=== PATIENT | female | born 1985 | race Caucasian/White ===

== ENCOUNTER 2020-05-19 12:01 | Emergency (ER) | payer OTHER | END 2020-05-19 13:18 | disposition home or self-care (01) | LOC: FER 12:01 | DX: J06.9 Acute upper respiratory infection, unspecified (principal); H92.03 Otalgia, bilateral; F17.210 Nicotine dependence, cigarettes, uncomplicated; Z88.5 Allergy status to narcotic agent; Z20.822 Contact with and (suspected) exposure to COVID-19 | CPT/HCPCS: 99283; U0002 ==